=== PATIENT | female | born 1950 | race Caucasian/White ===

== ENCOUNTER → 2017-03-28 | Day surgery (SDC) | payer MEDICARE ==
--- NOTE | 2017-03-28 11:57 | MMO ---
RIGHT BREAST STEREOTACTIC BIOPSY POST BIOPSY MAMMOGRAM: Date: 03/28/17 HISTORY: Right breast calcifications noted on previous mammography. COMPARISON: Screening mammography dated 03/10/17. FINDINGS: Technically successful right breast stereotactic biopsy. A total of six 10 gauge core biopsy samples were obtained. Calcifications are present. Post biopsy clip was placed. Clip is appropriately positio geoffrey. Biopsy site with residual air is noted in the right breast. TECHNIQUE: Consent obtained to perform a right breast stereotactic biopsy. The patient was placed in a prone pos ition on the stereotactic biopsy table. Right breast was placed through the hole in the table. Via la teral position, the calcifications were identified. Skin was prepped and draped in the sterile fashio n. 1% lidocaine, buffered with sodium bicarbonate, was used for local anesthesia. Needle position wit h respect to the calcifications was determined pre and post firing. A stereotactic biopsy was perform ed. A total of six 10 gauge core biopsy samples were obtained in a 360 degree fashion. Specimen was r adiographed. Calcifications present. Biopsy clip was placed. Post clip deployment images were obtaine d. Clip was outside of the needle. Hemostasis was achieved with manual pressure. Post biopsy mammogra m was performed. Clip noted in the right breast. On the MLO projection, clip was appropriately locate d. On the CC projection, clip was slightly lateral with respect to the air from the biopsy site. IMPRESSION: Successful right breast stereotactic biopsy. Final pathologic diagnosis pending. POS: [facility]
== END ==
LOC: MAMMO 09:00
PROVIDERS: ATTEND Surgery
PROC: 0HBT3ZX Excision of Right Breast, Percutaneous Approach, Diagnostic (ICD-10-PCS; principal; 2017-03-28)
DX: N64.89 Other specified disorders of breast (principal); R92.1 Mammographic calcification found on diagnostic imaging of breast; R92.8 Other abnormal and inconclusive findings on diagnostic imaging of breast
CPT/HCPCS: 19081; 76098; 88305; G0206